=== PATIENT | female | born 1975 | race Caucasian/White ===

== ENCOUNTER 2017-01-25 08:11 | Emergency (ER) | payer MEDICAID ==
[~2017-01-25] VITALS: Ht 175.3 cm; Wt 102.0 kg
[~2017-01-25 08:11] MED LIST: TAMO10TA2 PO; VENL25TA14 PO
[2017-01-25 08:13] VITALS: BP 114/78; PULSE 91; RESP 17; TEMP 97.9; O2SAT 98
[2017-01-25] MEDS ORDERED: SODIUM CHLOR 0.9% 1000 ML INJ 1,000 ML IV SCH (09:33)
--- NOTE | 2017-01-25 09:38 | PD ---
HPI Chief Complaint: Flank/Kidney Pain Time Seen by Provider: 09:17 Travel History International Travel<30 days: No Contact w/Intl Traveler<30days: No Traveled to known affect area: No History of Present Illness HPI 41-year-old female complains of back pain and nausea. Patient states that the symptoms started yesterday. Patient states that she has aching pain on the right and left flank area mid back area without radiation. Patient states that the pain is worse with movement. Patient states that the pain has been constant. Patient denied dysuria or frequency. Patient denies any fever chills. Patient states that she has severe nausea but no vomiting or diarrhea. Patient status post hysterectomy. Patient has history of breast cancer status post lumpectomy, chemotherapy and radiation therapy. Patient is on hormone treatment now. Patient denies any history kidney stone. On a scale of 1-10 the pain is a 7. PFSH Past Medical History Chemotherapy: Yes ?: Not Past Surgical History Hysterectomy: Yes (TOTAL) Social History Alcohol Use: No Tobacco Use: No Substance Use: No Allergies-Medications (Allergen,Severity, Reaction): Coded Allergies: Adhesives (Verified Allergy, Severe, Rash, 01/25/17) Vancomycin (Verified Allergy, Severe, Rash, 01/25/17) Reported Meds & Prescriptions Reported Meds & Active Scripts Active Review of Systems General / Constitutional: No: Fever Eyes: No: Visual changes HENT: No: Headaches Cardiovascular: No: Chest Pain or Discomfort Respiratory: No: Shortness of Breath Gastrointestinal: Positive: Nausea, No: Abdominal Pain Genitourinary: No: Dysuria Musculoskeletal: No: Pain Skin: No Rash Neurologic: No: Weakness Psychiatric: No: Depression Endocrine: No: Polydipsia Hematologic/Lymphatic: No: Easy Bruising Physical Exam Narrative GENERAL: Well-nourished, well-developed patient. SKIN: Focused skin assessment warm/dry. HEAD: Normocephalic. EYES: No scleral icterus. No injection or drainage. NECK: Supple, trachea midline. No JVD or lymphadenopathy. CARDIOVASCULAR: Regular rate and rhythm without murmurs, gallops, or rubs. RESPIRATORY: Breath sounds equal bilaterally. No accessory muscle use. GASTROINTESTINAL: Abdomen soft, non-tender, nondistended. MUSCULOSKELETAL: No cyanosis, or edema. BACK: Patient has moderate tenderness on palpation low thoracic upper lumbar area, without obvious deformity. Patient had bilateral flank pain. Neurologic exam normal. Data Data Last Documented VS Vital Signs Date Time Temp Pulse Resp B/P Pulse Ox O2 Delivery O2 Flow Rate FiO2 01/25/17 10:17 98 01/25/17 08:13 97.9 91 17 114/78 Orders Complete Blood Count With Diff (01/25/17 09:33) Comprehensive Metabolic Panel (01/25/17 09:33) Lipase (01/25/17 09:33) Prothrombin Time / Inr (Pt) (01/25/17 09:33) Act Partial Throm Time (Ptt) (01/25/17 09:33) Urinalysis - C+S If Indicated (01/25/17 09:33) Ct Abd/Pel W/O Iv Contrast (01/25/17 09:33) Iv Access Insert/Monitor (01/25/17 09:33) Ecg Monitoring (01/25/17 09:33) Oximetry (01/25/17 09:33) Ondansetron Inj (Zofran Inj) (01/25/17 09:45) Sodium Chlor 0.9% 1000 Ml Inj (Ns 1000 M (01/25/17 09:33) Ketorolac Inj (Toradol Inj) (01/25/17 09:45) Labs Laboratory Tests Test 01/25/17 09:30 White Blood Count 7.0 TH/MM3 Red Blood Count 4.50 MIL/MM3 Hemoglobin 14.0 GM/DL Hematocrit 41.3 % Mean Corpuscular Volume 91.8 FL Mean Corpuscular Hemoglobin 31.0 PG Mean Corpuscular Hemoglobin 33.8 % Concent Red Cell Distribution Width 13.0 % Platelet Count 169 TH/MM3 Mean Platelet Volume 10.3 FL Neutrophils (%) (Auto) 52.2 % Lymphocytes (%) (Auto) 34.3 % Monocytes (%) (Auto) 8.8 % Eosinophils (%) (Auto) 4.1 % Basophils (%) (Auto) 0.6 % Neutrophils # (Auto) 3.6 TH/MM3 Lymphocytes # (Auto) 2.4 TH/MM3 Monocytes # (Auto) 0.6 TH/MM3 Eosinophils # (Auto) 0.3 TH/MM3 Basophils # (Auto) 0.0 TH/MM3 CBC Comment DIFF FINAL Differential Comment Prothrombin Time 10.1 SEC Prothromb Time International 0.9 RATIO Ratio Activated Partial 28.2 SEC Thromboplast Time Urine Color YELLOW Urine Turbidity CLEAR Urine pH 5.0 Urine Specific [place] 1.016 Urine Protein NEG mg/dL Urine Glucose (UA) NEG mg/dL Urine Ketones NEG mg/dL Urine Occult Blood NEG Urine Nitrite NEG Urine Bilirubin NEG Urine Urobilinogen LESS THAN 2.0 MG/DL Urine Leukocyte Esterase SMALL Urine RBC 1 /hpf Urine WBC 8 /hpf Urine Squamous Epithelial 1 /hpf Cells Urine Bacteria RARE /hpf Microscopic Urinalysis Comment CULT NOT INDICATED Sodium Level 143 MEQ/L Potassium Level 4.2 MEQ/L Chloride Level 107 MEQ/L Carbon Dioxide Level 29.2 MEQ/L Anion Gap 7 MEQ/L Blood Urea Nitrogen 16 MG/DL Creatinine 0.88 MG/DL Estimat Glomerular Filtration 72 ML/MIN Rate Random Glucose 70 MG/DL Calcium Level 9.4 MG/DL Total Bilirubin 0.3 MG/DL Aspartate Amino Transf 26 U/L (AST/SGOT) Alanine Aminotransferase 35 U/L (ALT/SGPT) Alkaline Phosphatase 75 U/L Total Protein 7.9 GM/DL Albumin 3.5 GM/DL Lipase 260 U/L MDM Medical Decision Making Medical Screen Exam Complete: Yes Emergency Medical Condition: Yes Interpretation(s) Last Impressions Abdomen/Pelvis CT 01/25/17 0933 Signed Impressions: Service Date/Time: January 10:07 - CONCLUSION: Normal noncontrast CT of the abdomen and pelvis. Kyrie Bowens MD 10 46 AM. CBC within normal limit. CMP within normal limit. Glucose 70. UA showed few WBC and rare bacteria. Differential Diagnosis Differential diagnosis including musculoskeletal, nephrolithiasis, pyelonephritis, gastritis, cholecystitis, pancreatitis, gastroenteritis. Narrative Course 41-year-old female with bilateral flank pain, mid back pain and nausea. Normal saline solution 1 L IV bolus. Toradol 30 mg IV. Zofran 4 mg IV. Diagnosis Primary Impression: Back strain Qualified Code: S39.012A - Back strain, initial encounter Additional Impressions: Nausea UTI (urinary tract infection) Patient Instructions: General Instructions Additional Instructions: Take medication as needed. Follow-up with personal physician. Return if persistent problem or worse. Med/Other Pt SpecificInfo: Prescription(s) given Scripts Methocarbamol (Robaxin)750 Mg [id number] Mg PO QID #40 TAB Prov:Florentino,Hung MD 01/25/17 Meloxicam (Mobic)15 Mg Tab15 Mg PO DAILY #20 TAB Prov:Bradley Good MD 01/25/17 Sulfamethoxazole-Trimethoprim (Bactrim DS)800-160 Mg Tab1 Tab PO BID #6 TAB Prov:Bradley Good MD 01/25/17 Disposition: 01 DISCHARGE HOME Condition: Stable Bradley Good MD January 25, 2017 09:37
[2017-01-25] MEDS ORDERED: KETOROLAC TROMETHAMINE 30 MG/ML (IVP) VIAL IVP ONE (09:45)
[2017-01-25] MEDS ORDERED: ONDANSETRON HCL 4 MG/2 ML VIAL IVP ONE (09:45)
[2017-01-25 10:05] LABS: AUTOMATED NEUTROPHIL # 3.6 TH/MM3 (1.8-7.7); BASOPHIL % 0.6 % (0.0-2.0); EOSINOPHIL # 0.3 TH/MM3 (0-0.4); EOSINOPHIL % 4.1 % (0.0-4.0); HEMATOCRIT 41.3 % (35.0-46.0); HEMO FLAGS DIFF FINAL; LYMPH % 34.3 % (9.0-44.0); LYMPHOCYTE # 2.4 TH/MM3 (1.0-4.8); MEAN CELL VOLUME 91.8 FL (80.0-100.0); MEAN CORPUSCULAR HGB CONC 33.8 % (32.0-36.0); MONO % 8.8 % (0.0-8.0); NEUT % 52.2 % (16.0-70.0); PLATELET COUNT 169 TH/MM3 (150-450)
[2017-01-25 10:16] LABS: BACTERIA, URINE RARE /hpf; BLOOD, URINE NEG (NEG); COMMENT (UR) CULT NOT INDICATED; CULTURE IF INDICATED CULT NOT INDICATED; GLUCOSE,URINE NEG (NEG); KETONE, URINE NEG (NEG); NITRITE,URINE NEG (NEG); SQUAMOUS EPITHELIAL CELL URINE 1 /hpf (0-5); URINE COLOR YELLOW (YELLW/STRAW)
[2017-01-25 10:17] VITALS: O2SAT 98
[2017-01-25 10:17] LABS: APTT (PATIENT) 28.2 SEC (24.3-30.1); INTERNATIONAL NORMALIZED RATIO 0.9 RATIO; PROTHROMBIN TIME - PATIENT 10.1 SEC (9.8-11.6)
[2017-01-25 10:26] LABS: ALKALINE PHOSPHATASE 75 U/L (45-117); TOTAL BILIRUBIN ADULT 0.3 MG/DL (0.2-1.0)
[2017-01-25 10:27] LABS: ALT (GPT) 35 U/L (10-53); ANION GAP 7 MEQ/L (5-15); AST (GOT) 26 U/L (15-37); BICARBONATE 29.2 MEQ/L (21.0-32.0); BLOOD UREA NITROGEN 16 MG/DL (7-18); CHLORIDE 107 MEQ/L (98-107); GLOMERULAR FILTRATION RATE 72 ML/MIN (>89); POTASSIUM 4.2 MEQ/L (3.5-5.1); SODIUM (NA) 143 MEQ/L (136-145)
--- NOTE | 2017-01-25 10:27 | RADRPT ---
EXAM DATE/TIME: 01/25/2017 10:07 [facility] COMPARISON: No previous studies available for comparison. INDICATIONS : Right flank pain along with nausea for two days. ORAL CONTRAST: No oral contrast ingested. RADIATION DOSE: 24.11 CTDIvol (mGy) MEDICAL HISTORY : None SURGICAL HISTORY : Hysterectomy. ENCOUNTER: Initial ACUITY: 2 days PAIN SCALE: 3/10 LOCATION: Right flank TECHNIQUE: Volumetric scanning of the abdomen and pelvis was performed. Using automated exposure control and ad justment of the mA and/or kV according to patient size, radiation dose was kept as low as reasonably achievable to obtain optimal diagnostic quality images. FINDINGS: LOWER LUNGS: The visualized lower lungs are clear. LIVER: Homogeneous density without lesion. There is no dilation of the biliary tree. No calcified gallston es. SPLEEN: Normal size without lesion. PANCREAS: Within normal limits. KIDNEYS: Normal in size and shape. There is no mass, stone, or hydronephrosis. ADRENAL GLANDS: Within normal limits. VASCULAR: There is no aortic aneurysm. BOWEL/MESENTERY: The stomach, small bowel, and colon demonstrate no acute abnormality. There is no free intraperitone al air or fluid. The appendix is well-visualized, normal. ABDOMINAL WALL: Within normal limits. RETROPERITONEUM: There is no lymphadenopathy. BLADDER: No wall thickening or mass. REPRODUCTIVE: Within normal limits. INGUINAL: There is no lymphadenopathy or hernia. MUSCULOSKELETAL: No acute bony abnormality demonstrated. Incidentally seen partial sacralization on the right of L5 wi th associated mild degenerative changes. CONCLUSION: Normal noncontrast CT of the abdomen and pelvis. Kyrie Bowens MD on January 25, 2017 at 10:23 Board Certified Radiologist. This report was verified electronically.
[2017-01-25] MEDS ORDERED: BACT800T5 PO (10:50)
[2017-01-25] MEDS ORDERED: ROBA750T PO (10:50)
[2017-01-25] MEDS ORDERED: MOBI15TA PO (10:50)
[2017-01-25 10:54] VITALS: BP 118/77; TEMP 98
== END 2017-01-25 11:04 | disposition home or self-care (01) ==
LOC: NEPE 08:11
DX: S39.012A Strain of muscle, fascia and tendon of lower back, initial encounter (principal); R11.0 Nausea; R10.9 Unspecified abdominal pain; N39.0 Urinary tract infection, site not specified; X50.9XXA Other and unspecified overexertion or strenuous movements or postures, initial encounter
CPT/HCPCS: 74176; 80053; 81001; 83690; 85025; 85610; 85730; 96374; 96375; 99284; J1885; J2405; J7030

== ENCOUNTER 2017-10-24 02:12 | Emergency (ER) | payer BC, MEDICAID ==
[~2017-10-24] VITALS: Ht 172.7 cm; Wt 102.0 kg
[~2017-10-24 02:12] MED LIST changes: +BACT800T5 PO; +MOBI15TA PO; +ROBA750T PO; -TAMO10TA2 PO; -VENL25TA14 PO
[2017-10-24 02:15] VITALS: BP 126/79; PULSE 81; RESP 16; TEMP 97.6; O2SAT 97
[2017-10-24] MEDS ORDERED: OMEP40CA2 PO (02:32)
[2017-10-24] MEDS ORDERED: TAMO20TA6 PO (02:32)
[2017-10-24] MEDS ORDERED: GABA300C5 PO (02:32)
[2017-10-24] MEDS ORDERED: FLUC100T2 PO (02:32)
[2017-10-24] MEDS ORDERED: VENL75TA PO (02:32)
[2017-10-24] MEDS ORDERED: OXYC-395 PO (02:32)
[2017-10-24] MEDS ORDERED: SODIUM CHLOR 0.9% 1000 ML INJ 1,000 ML IV SCH (02:41)
[2017-10-24] MEDS ORDERED: ONDANSETRON HCL 4 MG/2 ML VIAL IVP ONE (02:45)
[2017-10-24] MEDS ORDERED: MORPHINE SULFATE 4 MG/ML INJ IV PUSH ONE (02:45)
[2017-10-24] MEDS ORDERED: KETOROLAC TROMETHAMINE 30 MG/ML (IVP) VIAL IVP ONE (02:45)
[2017-10-24] MEDS ORDERED: SODIUM CHLORIDE 0.9% FLUSH 10 ML FLUSH IV FLUSH PRN (02:45)
--- NOTE | 2017-10-24 02:45 | PD ---
HPI Chief Complaint: Abdominal Pain Time Seen by Provider: 02:33 Travel History International Travel<30 days: No Contact w/Intl Traveler<30days: No Traveled to known affect area: No History of Present Illness HPI The patient is a 42-year-old female who presents emergency department for right upper quadrant abdominal pain. The patient states her pain started 2 hours prior to arrival, while she was at work. The pain is located right upper quadrant, radiates to the right flank and back, is associated with nausea, vomiting, one loose bowel movement. The patient had similar pain several years ago, had a workup for gallbladder disease, but was told it was unremarkable. She denies any lower abdominal pain, dysuria, frequency, or urgency. Previous abdominal surgeries include hysterectomy. The patient denies any chest pain, shortness of breath, or cough. Symptoms are moderate. There are no current alleviating or exacerbating factors. The patient did take an oxycodone for pain prior to arrival. She denies any assisted fever, chills, or sweats. PFSH Past Medical History Chemotherapy: Yes Fibromyalgia: Yes Implanted Vascular Access Dvce: No (R chest port removed 06/2016) Neurologic: Yes (Neuropathy) Tetanus Vaccination: Unknown Influenza Vaccination: No ?: Not Past Surgical History Hysterectomy: Yes Other Surgery: Yes (L breast lumpectomy, R breast resconstruction) Social History Alcohol Use: Yes (socially) Tobacco Use: No Substance Use: No Allergies-Medications (Allergen,Severity, Reaction): Coded Allergies: adhesive (Unverified Allergy, Severe, Rash, 05/08/17) vancomycin (Unverified Allergy, Severe, Rash, 05/08/17) Reported Meds & Prescriptions Reported Meds & Active Scripts Active Reported Fluconazole 100 Mg Tab 100 Mg PO ONCE Oxycodone (Oxycodone HCl) 10 Mg Tab 10 Mg PO Q6H PRN Effexor (Venlafaxine HCl) 75 Mg Tab 150 Mg PO DAILY Omeprazole 40 Mg Cap 40 Mg PO DAILY Tamoxifen (Tamoxifen Citrate) 20 Mg Tab 20 Mg PO DAILY Gabapentin 300 Mg Cap 900 Mg PO TID Review of Systems Except as stated in HPI: all other systems reviewed are Neg General / Constitutional: No: Fever Cardiovascular: No: Chest Pain or Discomfort Respiratory: No: Shortness of Breath Gastrointestinal: Positive: Nausea, Vomiting, Abdominal Pain, No: Diarrhea Genitourinary: No: Dysuria Skin: No Rash Physical Exam Narrative GENERAL: Awake, alert, pleasant 42-year-old female who appears her stated age and is in no acute respiratory distress. SKIN: Focused skin assessment warm/dry. HEAD: Atraumatic. Normocephalic. EYES: No injection or drainage. ENT: No nasal bleeding or discharge. Mucous membranes pink and moist. NECK: Trachea midline. No JVD. CARDIOVASCULAR: Regular rate and rhythm. No murmur appreciated. RESPIRATORY: No accessory muscle use. Clear to auscultation. Breath sounds equal bilaterally. GASTROINTESTINAL: Abdomen soft, tender palpation right upper quadrant. No guarding or rigidity. Back: No CVA tenderness. Tenderness of the inferior aspect of the right scapula. MUSCULOSKELETAL: No obvious deformities. No clubbing. No cyanosis. No edema. NEUROLOGICAL: Awake and alert. No obvious cranial nerve deficits. Motor grossly within normal limits. Normal speech. PSYCHIATRIC: Appropriate mood and affect; insight and judgment normal. Data Data Last Documented VS Vital Signs Date Time Temp Pulse Resp B/P (MAP) Pulse Ox O2 Delivery O2 Flow Rate FiO2 10/24/17 04:22 67 18 118/67 (84) 96 Room Air 10/24/17 02:15 97.6 Orders Orders Complete Blood Count With Diff (10/24/17 02:41) Comprehensive Metabolic Panel (10/24/17 02:41) Lipase (10/24/17 02:41) Urinalysis - C+S If Indicated (10/24/17 02:41) Ct Abd/Pel W Iv Contrast(Rout) (10/24/17 02:41) Iv Access Insert/Monitor (10/24/17 02:41) Ecg Monitoring (10/24/17 02:41) Oximetry (10/24/17 02:41) Morphine Inj (Morphine Inj) (10/24/17 02:45) Ondansetron Inj (Zofran Inj) (10/24/17 02:45) Sodium Chlor 0.9% 1000 Ml Inj (Ns 1000 M (10/24/17 02:41) Sodium Chloride 0.9% Flush (Ns Flush) (10/24/17 02:45) Ketorolac Inj (Toradol Inj) (10/24/17 02:45) Iohexol 350 Inj (Omnipaque 350 Inj) (10/24/17 03:42) Urine Culture (10/24/17 04:20) Labs Laboratory Tests Test 10/24/17 02:50 10/24/17 04:20 White Blood Count 9.1 TH/MM3 Red Blood Count 4.18 MIL/MM3 Hemoglobin 13.2 GM/DL Hematocrit 37.0 % Mean Corpuscular Volume 88.5 FL Mean Corpuscular Hemoglobin 31.5 PG Mean Corpuscular Hemoglobin Concent 35.6 % Red Cell Distribution Width 12.5 % Platelet Count 192 TH/MM3 Mean Platelet Volume 8.9 FL Neutrophils (%) (Auto) 52.9 % Lymphocytes (%) (Auto) 33.5 % Monocytes (%) (Auto) 8.8 % Eosinophils (%) (Auto) 3.6 % Basophils (%) (Auto) 1.2 % Neutrophils # (Auto) 4.8 TH/MM3 Lymphocytes # (Auto) 3.1 TH/MM3 Monocytes # (Auto) 0.8 TH/MM3 Eosinophils # (Auto) 0.3 TH/MM3 Basophils # (Auto) 0.1 TH/MM3 CBC Comment DIFF FINAL Differential Comment Blood Urea Nitrogen 11 MG/DL Creatinine 0.81 MG/DL Random Glucose 89 MG/DL Total Protein 7.8 GM/DL Albumin 3.3 GM/DL Calcium Level 8.5 MG/DL Alkaline Phosphatase 80 U/L Aspartate Amino Transf (AST/SGOT) 23 U/L Alanine Aminotransferase (ALT/SGPT) 25 U/L Total Bilirubin 0.2 MG/DL Sodium Level 141 MEQ/L Potassium Level 3.9 MEQ/L Chloride Level 105 MEQ/L Carbon Dioxide Level 29.1 MEQ/L Anion Gap 7 MEQ/L Estimat Glomerular Filtration Rate 78 ML/MIN Lipase 214 U/L Urine Color LIGHT-YELLOW Urine Turbidity CLEAR Urine pH 6.0 Urine Specific [place] 1.041 Urine Protein NEG mg/dL Urine Glucose (UA) NEG mg/dL Urine Ketones NEG mg/dL Urine Occult Blood NEG Urine Nitrite NEG Urine Bilirubin NEG Urine Urobilinogen LESS THAN 2.0 MG/DL Urine Leukocyte Esterase MOD Urine RBC 1 /hpf Urine WBC 9 /hpf Urine Squamous Epithelial Cells 1 /hpf Microscopic Urinalysis Comment CULTURE INDICATED MDM Medical Decision Making Medical Screen Exam Complete: Yes Emergency Medical Condition: Yes Medical Record Reviewed: Yes Interpretation(s) CT abdomen and pelvis with contrast reveals no acute findings. Minimal dependent atelectasis in the lungs. Small hiatal hernia. Last Impressions Abdomen/Pelvis CT 10/24/17 0241 Signed Impressions: Service Date/Time: Tuesday, October 24, 2017 03:40 - CONCLUSION: 1. No acute findings. Minimal dependent atelectasis in the lungs. Small hiatal hernia. Richy Oneil MD Laboratory Tests Test 10/24/17 02:50 10/24/17 04:20 White Blood Count 9.1 TH/MM3 Red Blood Count 4.18 MIL/MM3 Hemoglobin 13.2 GM/DL Hematocrit 37.0 % Mean Corpuscular Volume 88.5 FL Mean Corpuscular Hemoglobin 31.5 PG Mean Corpuscular Hemoglobin Concent 35.6 % Red Cell Distribution Width 12.5 % Platelet Count 192 TH/MM3 Mean Platelet Volume 8.9 FL Neutrophils (%) (Auto) 52.9 % Lymphocytes (%) (Auto) 33.5 % Monocytes (%) (Auto) 8.8 % Eosinophils (%) (Auto) 3.6 % Basophils (%) (Auto) 1.2 % Neutrophils # (Auto) 4.8 TH/MM3 Lymphocytes # (Auto) 3.1 TH/MM3 Monocytes # (Auto) 0.8 TH/MM3 Eosinophils # (Auto) 0.3 TH/MM3 Basophils # (Auto) 0.1 TH/MM3 CBC Comment DIFF FINAL Differential Comment Blood Urea Nitrogen 11 MG/DL Creatinine 0.81 MG/DL Random Glucose 89 MG/DL Total Protein 7.8 GM/DL Albumin 3.3 GM/DL Calcium Level 8.5 MG/DL Alkaline Phosphatase 80 U/L Aspartate Amino Transf (AST/SGOT) 23 U/L Alanine Aminotransferase (ALT/SGPT) 25 U/L Total Bilirubin 0.2 MG/DL Sodium Level 141 MEQ/L Potassium Level 3.9 MEQ/L Chloride Level 105 MEQ/L Carbon Dioxide Level 29.1 MEQ/L Anion Gap 7 MEQ/L Estimat Glomerular Filtration Rate 78 ML/MIN Lipase 214 U/L Urine Color LIGHT-YELLOW Urine Turbidity CLEAR Urine pH 6.0 Urine Specific [place] 1.041 Urine Protein NEG mg/dL Urine Glucose (UA) NEG mg/dL Urine Ketones NEG mg/dL Urine Occult Blood NEG Urine Nitrite NEG Urine Bilirubin NEG Urine Urobilinogen LESS THAN 2.0 MG/DL Urine Leukocyte Esterase MOD Urine RBC 1 /hpf Urine WBC 9 /hpf Urine Squamous Epithelial Cells 1 /hpf Microscopic Urinalysis Comment CULTURE INDICATED Differential Diagnosis Differential diagnosis includes acute cholecystitis, cholelithiasis, choledocholithiasis, pancreatitis, peptic ulcer disease, colitis, enteritis, atypical appendicitis, pyelonephritis. Narrative Course IV was established, labs are drawn and sent, and the patient was placed on cardiac telemetry monitoring and continuous pulse oximetry monitoring. CT of the abdomen and pelvis with IV contrast was ordered. The patient was administered morphine, Toradol, Zofran, and IV fluids. The patient's white count is unremarkable. LFTs and lipase are within normal limits. CT of the abdomen and pelvis reveals no acute findings, nothing to suggest acute cholecystitis or choledocholithiasis. UA was sent to lab. The patient's UA had 9 WBCs, culture was pending. The patient will be placed on Bactrim twice a day for 3 days. She is advised to follow-up with her primary physician and a general surgeon if symptoms persist as it could be biliary colic. Diagnosis Primary Impression: Abdominal pain Qualified Codes: R10.11 - Right upper quadrant pain Additional Impression: UTI (urinary tract infection) Qualified Codes: N39.0 - Urinary tract infection, site not specified Patient Instructions: General Instructions Additional Instructions: Please provide the patient a copy of her CT results and lab results at discharge. Follow-up with your primary physician. Medication as directed. You may benefit from follow-up with a general surgeon if symptoms persist. Med/Other Pt SpecificInfo: Prescription(s) given Scripts Sulfamethoxazole-Trimethoprim (Bactrim DS) 800-160 Mg Tab 1 TAB PO BID for Infection, #6 TAB 0 Refills Prov: Khurram Hopson MD 10/24/17 Disposition: DISCHARGE HOME Condition: Stable Khurram Hopson MD Oct 24, 2017 02:45
[2017-10-24 02:49] VITALS: BP 116/67; PULSE 75; RESP 18; O2SAT 97
[2017-10-24 03:04] LABS: AUTOMATED NEUTROPHIL # 4.8 TH/MM3 (1.8-7.7); BASOPHIL # 0.1 TH/MM3 (0-0.2); BASOPHIL % 1.2 % (0.0-2.0); EOSINOPHIL # 0.3 TH/MM3 (0-0.4); EOSINOPHIL % 3.6 % (0.0-4.0); HEMOGLOBIN 13.2 GM/DL (11.6-15.3); LYMPH % 33.5 % (9.0-44.0); LYMPHOCYTE # 3.1 TH/MM3 (1.0-4.8); MEAN CELL VOLUME 88.5 FL (80.0-100.0); MEAN CORPUSCULAR HEMOGLOBIN 31.5 PG (27.0-34.0); MEAN CORPUSCULAR HGB CONC 35.6 % (32.0-36.0); MEAN PLATELET VOLUME 8.9 FL (7.0-11.0); MONO % 8.8 % (0.0-8.0); MONOCYTE # 0.8 TH/MM3 (0-0.9); NEUT % 52.9 % (16.0-70.0); PLATELET COUNT 192 TH/MM3 (150-450); RED BLOOD COUNT 4.18 MIL/MM3 (4.00-5.30); RED CELL DISTRIBUTION WIDTH 12.5 % (11.6-17.2); WHITE BLOOD COUNT 9.1 TH/MM3 (4.0-11.0)
[2017-10-24 03:13] LABS: ALBUMIN 3.3 GM/DL (3.4-5.0); AST (GOT) 23 U/L (15-37); BICARBONATE 29.1 MEQ/L (21.0-32.0); BLOOD UREA NITROGEN 11 MG/DL (7-18); CALCIUM 8.5 MG/DL (8.5-10.1); CHLORIDE 105 MEQ/L (98-107); CREATININE 0.81 MG/DL (0.50-1.00); GLOMERULAR FILTRATION RATE 78 ML/MIN (>89); GLUCOSE,RANDOM 89 MG/DL (74-106); LIPASE 214 U/L (73-393); SODIUM (NA) 141 MEQ/L (136-145)
[2017-10-24 03:16] LABS: ALKALINE PHOSPHATASE 80 U/L (45-117); ALT (GPT) 25 U/L (10-53); TOTAL BILIRUBIN ADULT 0.2 MG/DL (0.2-1.0); TOTAL PROTEIN 7.8 GM/DL (6.4-8.2)
[2017-10-24] MEDS ORDERED: IOHEXOL 350 MG/ML 10 ML VIAL (for RAD DIAG) IVCONTRAST ONE (03:42)
[2017-10-24 04:22] VITALS: BP 118/67; PULSE 67; RESP 18; O2SAT 96
--- NOTE | 2017-10-24 04:23 | RADRPT ---
EXAM DATE/TIME: 10/24/2017 03:40 [facility] COMPARISON: No previous studies available for comparison. INDICATIONS : Right upper quadrant pain. IV CONTRAST: 100 cc Omnipaque 350 (iohexol) IV ORAL CONTRAST: No oral contrast ingested. RADIATION DOSE: 11.36 CTDIvol (mGy) MEDICAL HISTORY : None SURGICAL HISTORY : Hysterectomy. ENCOUNTER: Initial ACUITY: 1 day PAIN SCALE: 8/10 LOCATION: Right upper quadrant TECHNIQUE: Volumetric scanning of the abdomen and pelvis was performed. Using automated exposure control and ad justment of the mA and/or kV according to patient size, radiation dose was kept as low as reasonably achievable to obtain optimal diagnostic quality images. DICOM format image data is available electro nically for review and comparison. FINDINGS: LOWER LUNGS: The visualized lower lungs are clear. LIVER: Homogeneous density without lesion. There is no dilation of the biliary tree. No calcified gallston es. SPLEEN: Normal size without lesion. PANCREAS: Within normal limits. KIDNEYS: Normal in size and shape. There is no mass, stone or hydronephrosis. ADRENAL GLANDS: Within normal limits. VASCULAR: There is no aortic aneurysm. BOWEL/MESENTERY: The stomach, small bowel, and colon demonstrate no acute abnormality. There is no free intraperitone al air or fluid. ABDOMINAL WALL: Within normal limits. RETROPERITONEUM: There is no lymphadenopathy. BLADDER: No wall thickening or mass. REPRODUCTIVE: Within normal limits. INGUINAL: There is no lymphadenopathy or hernia. MUSCULOSKELETAL: Within normal limits for patient age. CONCLUSION: 1. No acute findings. Minimal dependent atelectasis in the lungs. Small hiatal hernia. Richy Oneil MD on October 24, 2017 at 4:17 Board Certified Radiologist. This report was verified electronically.
[2017-10-24 04:49] LABS: BILIRUBIN, URINE NEG (NEG); BLOOD, URINE NEG (NEG); GLUCOSE,URINE NEG (NEG); KETONE, URINE NEG (NEG); NITRITE,URINE NEG (NEG); SQUAMOUS EPITHELIAL CELL URINE 1 /hpf (0-5); URINE COLOR LIGHT-YELLOW (YELLW/STRAW); URINE LEUKOCYTE ESTERASE MOD (NEG)
[2017-10-24] MEDS ORDERED: BACT800T5 PO (04:56)
== END 2017-10-24 05:10 | disposition home or self-care (01) ==
LOC: NEPE 02:12
DX: R10.11 Right upper quadrant pain (principal); N39.0 Urinary tract infection, site not specified; K44.9 Diaphragmatic hernia without obstruction or gangrene; M79.7 Fibromyalgia
CPT/HCPCS: 74177; 80053; 81001; 83690; 85025; 87086; 96361; 96374; 96375; 99285; J1885; J2270; J2405; J7030; Q9967